=== PATIENT | female | born 1995 | race Caucasian/White ===

== ENCOUNTER 2017-03-24 23:00 | Outpatient (CLI) | END 2017-03-25 02:00 | disposition home or self-care (01) | DX: O24.410 Gestational diabetes mellitus in pregnancy, diet controlled (principal); Z3A.29 29 weeks gestation of pregnancy ==

== ENCOUNTER 2017-05-25 11:03 | Inpatient (IN) | payer OTHER ==
[~2017-05-25 11:03] MED LIST: CALC600T11 PO; PRENAT PO
[2017-05-25] MEDS ORDERED: LACTATED RINGER'S 1,000 ML IV SCH (11:52)
[2017-05-25] MEDS ORDERED: IBUPROFEN 600 MG TAB PO PRN (12:00)
[2017-05-25] MEDS ORDERED: CARBOPROST 250 MCG INJ IM PRN ×2 (12:00→18:00)
[2017-05-25] MEDS ORDERED: MISOPROSTOL 200 MCG TAB PR PRN ×2 (12:00→18:00)
[2017-05-25] MEDS ORDERED: LACTATED RINGER'S 1,000 ML IV PRN (12:00)
[2017-05-25] MEDS ORDERED: LIDOCAINE 1% (MPF) 30 ML INJ INJ PRN (12:00)
[2017-05-25] MEDS ORDERED: METHYLERGONOVINE 0.2 MG INJ IM PRN ×2 (12:00→18:00)
[2017-05-25] MEDS ORDERED: OXYTOCIN 30 UNITS/LR 500 ML IV PRN ×2 (12:00→18:00)
[2017-05-25] MEDS ORDERED: OXYTOCIN 30 UNITS/LR 500 ML IV SCH ×2 (12:00)
[2017-05-25] MEDS ORDERED: BUTORPHANOL 2 MG INJ IV PRN (12:00)
[2017-05-25] MEDS ORDERED: MINERAL OIL LIGHT 10 ML VIAL TOP PRN (12:00)
[2017-05-25] MEDS ORDERED: AMPICILLIN 2 GM/NS (PMX) 100 ML IVPB ONE (14:00)
[2017-05-25 14:30] LABS: BASOPHIL # 0.1 10^3/ul (0.0-0.1); BASOPHILS % 0.3 % (0.0-2.0); EOSINOPHILS % 0.1 % (0.0-7.0); HEMATOCRIT 43.3 % (37.0-47.0); HEMOGLOBIN 14.1 g/dl (12.0-16.0); LYMPHOCYTES # 1.8 10^3/ul (0.8-2.9); LYMPHOCYTES % 9.4 % (15.0-51.0); MEAN CORPUSCULAR HEMOGLOBIN 30.9 pg (29.0-33.0); MEAN CORPUSCULAR HGB CONC 32.6 g/dl (32.0-37.0); MEAN PLATELET VOLUME 11.7 fl (7.4-10.4); MONOCYTE # 1.3 10^3/ul (0.3-0.9); MONOCYTES % 6.6 % (0.0-11.0); NEUTROPHIL # 15.8 10^3/ul (1.6-7.5); NEUTROPHILS % 83.1 % (39.0-77.0); PLATELET COUNT 244 10^3/UL (140-415); RED BLOOD COUNT 4.56 10^6/ul (4.20-5.40)
--- NOTE | 2017-05-25 14:37 | TRIAGE ---
OB Triage Datetime Report Generated by CPN: 05/25/2017 14:37 Datetime: 05/25/2017 14:17 Vaginal Exam Dilatation (cms): 9.0 Effacement (%): 100 Exam By: DDUNN Membrane Status: Bulging Vaginal Bleeding: Normal Show Cervix, Consistency: Soft Cervix, Position: Anterior Datetime: 05/25/2017 13:44 Vaginal Exam Dilatation (cms): 6.0 Effacement (%): 90 Exam By: DDUNN Membrane Status: Bulging Vaginal Bleeding: Normal Show Cervix, Consistency: Soft Cervix, Position: Anterior Datetime: 05/25/2017 12:56 Time of Arrival: 05/25/2017 10:50 EGA: 38.4 Arrived By: Ambulatory Arrived From: Office Chief Complaint: UC Movement: Present Contractions: Irregular Rupture of Membranes: Denies Vaginal Bleeding: Normal Show Vaginal Discharge: Denies Recent Sexual Intercouse: Denies Abdominal Trauma: Not Applicable Patient Complaints: Contractions Time Provider Notified: 05/25/2017 11:21 Provider Notified: Tom Initial Plan: NST, VE Datetime: 05/25/2017 11:08 Stage of : OB Triage Datetime: 05/25/2017 11:00 Assessment Type: Triage Maternal Assessment Level of Consciousness: Fully Conscious DTR's/Clonus: DTRs 2+; No Clonus Headache: Denies Blurred Vision: No Respiratory Effort: Unlabored; Regular Rhythm; Equal Expansion Breath Sounds, Left: Clear and Equal Breath Sounds, Right: Clear and Equal Nausea/Vomiting: Denies RUQ Epigastric Pain: Denies Lower Extremities Edema: Bilateral Lower Extremities Degree: 1+ Upper Extremities Edema: Bilateral Upper Extremities Degree: 1+ Facial Edema: None Fall Risk Assessment History of Falling: (0) No Secondary Diagnosis: (0) No Ambulatory Aid: (0) Bedrest/Nurse Assist IV Therapy: (0) No Gait: (0) Normal/Bedrest/Immobile Mental Status: (0) Oriented to Own Ability Fall Score: 0 Fall Risk Score Definition: No Risk: No action required Datetime: 05/25/2017 09:27 Vaginal Exam Dilatation (cms): 4.0 Effacement (%): 50 Station: -1 Datetime: 03/25/2017 00:33 Monitor Mode: External Quality: Mild Datetime: 03/25/2017 00:30 Stage of : OB Triage Vaginal Exam Dilatation (cms): 0.0 Effacement (%): 0 Station: -4 Exam By: Lianne Robles Membrane Status: Intact Vaginal Bleeding: None Cervix, Consistency: Firm Cervix, Position: Posterior Datetime: 03/25/2017 00:25 Stage of : OB Triage Datetime: 03/25/2017 00:01 Stage of : OB Triage Datetime: 03/24/2017 23:44 Stage of : OB Triage Heart Rate FHR Baseline Rate: 130 Monitor Mode: External US FHR Baseline Changes: No Baseline Change Variability: Moderate 6-25 bpm Accelerations: 15X15 Decelerations: None Category: Category I Comments: FM removed Datetime: 03/24/2017 23:35 Stage of : OB Triage Monitor Mode: External Quality: Mild Pattern: Normal: <= 5 Contractions in 10 Minutes Resting Tone [place]: Relaxed Heart Rate FHR Baseline Rate: 130 Monitor Mode: External US FHR Baseline Changes: No Baseline Change Variability: Moderate 6-25 bpm Accelerations: 15X15 Decelerations: None Category: Category I Datetime: 03/24/2017 23:14 Bedside Blood Glucose: 90 Datetime: 03/24/2017 23:11 Stage of : OB Triage Maternal Assessment Level of Consciousness: Fully Conscious Headache: Denies Blurred Vision: Yes Respiratory Effort: Unlabored Nausea/Vomiting: Denies RUQ Epigastric Pain: Denies Facial Edema: None Labor Evaluation Frequency: plac ed Monitor Mode: External Resting Tone [place]: Relaxed Monitor Mode: External US Comments: FHT 140 Pain Assessment Pain Scale: 0 Pain Presence: None/Denies Pain Type: N/A Datetime: 03/24/2017 23:08 Time of Arrival: 03/24/2017 22:55 EGA: 29.5 Arrived By: Wheelchair Arrived From: Home Movement: Present Contractions: Denies/Absent Rupture of Membranes: Denies (Annotations: Data stored by CPN on behalf of user) Patient Complaints: Visual Disturbance; Dizziness
[2017-05-25 14:47] LABS: INR 0.91; PARTIAL THROMBOPLASTIN TIME 27.2 Sec (25.0-35.0); PROTIME 12.3 Sec (12.2-14.2)
[2017-05-25] MEDS ORDERED: OXYTOCIN 10 UNIT INJ ONE (15:13)
--- NOTE | 2017-05-25 16:59 | LDN ---
Date/Time of Note Date/Time of Note DATE: 05/25/17 TIME: 16:55 Delivery Summary Normal spontaneous vaginal delivery of a viable infant over intact perineum Weeks of Gestation 38+ Placenta Delivered: Spontaneously, Intact & Complete Meconium: none Episiotomy: No Perineal laceration: 0 Anesthesia type: None Estimated blood loss: 200 Sponge & Needle done & correct: Yes All needle counts correct: Yes Any foreign bodies felt in the: No Problems: Delivery Information Sex Sex: male Apgars 1 Minute: 9 5 Minute: 9 Suctioning Nose & mouth suctioned at finn: Yes Delee suction performed: No Umbilical Cord Umbilical cord with: 3 Vessels Cord presentations: no nuchal cord Cord Blood was obtained: Yes Mother & Baby Disposition Disposition Procedure done by Dr. Nascimento Mom & Baby to Maternity; Good: Yes (Mother and baby were recovered in good condition) Mom transferred to: Other (Maternity) Baby to NICU: No JENNIFER CARRANZA MD May 25, 2017 16:59
[2017-05-25] MEDS ORDERED: AMPICILLIN 1 GM/NS (PMX) 50 ML IVPB SCH (17:00)
--- NOTE | 2017-05-25 17:02 | HP ---
Date/Time of Note Date/Time of Note DATE: 05/25/17 TIME: 16:59 OB - History Hx of Present Free Text/Dictation Complaint of onset of labor pain started a few hours prior to admission denies rupture of membrane Last Menstrual Period: Aug 28, 2017 Estimated Due Date: Jun 04, 2017 : 2 Para: 1 Care: Good Care Ultrasounds: Normal mid trimester US Obstetrical Complications: Gestational Diabetes Medical Complications: None Past Family/Social History * Past Medical, Surgical, Family and Obstetric Histories reviewed from chart. Blood Type: O+ RPR/VDRL: Negative GBS Status: Positive HBsAG: Negative OB Admission Exam Physical Exam HEENT: WNL Heart: Rhythm Normal Lungs: Clear, Equal Abdomen: WNL Extremities: Normal Reflexes: Normal Cervical Dilatation: 4cm Effacement: 75% Station: -2 Membranes: Intact Heart Rate: 140's Accelerations: Accelerations Present Decelerations: No Decelerations Varibility: Marked Contractions on Admission: < 5 Minutes Apart Date/Time Contractions Began: May 25, 2017 Frequency of Contractions: Every 3 4 minutes Duration: Over 62nd Intensity: Moderate Last 72 hours Lab Results CBC & BMP 05/25/17 13:35 OB Assessment/Plan Reason for admission: active labor Other Assessment: Term gestation Class A1 diabetes Other plan: Continue to observe for leg JENNIFER CARRANZA MD May 25, 2017 17:02
[2017-05-25] MEDS ORDERED: LACTATED RINGER'S 1,000 ML IV* SCH (17:43)
[2017-05-25] MEDS: IBUPROFEN 600 MG TAB PO SCH (18:00)
[2017-05-25] MEDS ORDERED: WITCH HAZEL/GLYCERIN PAD PR PRN (18:00)
[2017-05-25] MEDS ORDERED: LANOLIN 7 GM TUBE TOP PRN (18:00)
[2017-05-25] MEDS ORDERED: BENZOCAINE 20% 56 ML SPRAY TOP PRN (18:00)
[2017-05-25] MEDS ORDERED: HYDROCODONE/APAP (5/325) TAB PO PRN ×2 (18:00)
[2017-05-25] MEDS ORDERED: ZOLPIDEM 5 MG TAB PO PRN (18:00)
[2017-05-25] MEDS ORDERED: DIBUCAINE 1% 30 GM OINT PR PRN (18:00)
[2017-05-25 18:55] VITALS: BP 113/85; PULSE 113; RESP 15
[2017-05-25] MEDS: ACCU-CHEK XX SCH (19:35)
[2017-05-25 19:50] VITALS: BP 124/69; PULSE 100; RESP 18
[2017-05-25] MEDS: metFORMIN (XR) 500 MG TAB PO SCH (20:55)
[2017-05-25] MEDS: MAGNESIUM HYDROXIDE 30ML CUP PO SCH (20:56)
[2017-05-25] MEDS: SENNA/DOCUSATE NA (8.6MG/50MG) TAB PO SCH (20:56)
[2017-05-26] MEDS: IBUPROFEN 600 MG TAB PO SCH ×5 (00:14→23:34)
[2017-05-26 04:00] VITALS: BP 100/74; PULSE 88; RESP 18
[2017-05-26 07:30] VITALS: BP 100/59; PULSE 89; RESP 20
[2017-05-26] MEDS: ACCU-CHEK XX SCH ×5 (07:30→21:00)
[2017-05-26] MEDS: metFORMIN (XR) 500 MG TAB PO SCH ×2 (08:56→21:17)
[2017-05-26] MEDS: MAGNESIUM HYDROXIDE 30ML CUP PO SCH ×2 (08:56→21:15)
[2017-05-26] MEDS: SENNA/DOCUSATE NA (8.6MG/50MG) TAB PO SCH ×2 (08:56→21:15)
[2017-05-26 09:26] LABS: ABNORMAL IP MESSAGE 1; BASOPHIL # 0.1 10^3/ul (0.0-0.1); BASOPHILS % 0.2 % (0.0-2.0); EOSINOPHILS # 0.2 10^3/ul (0.0-0.5); EOSINOPHILS % 0.8 % (0.0-7.0); HEMATOCRIT 34.5 % (37.0-47.0); HEMOGLOBIN 11.4 g/dl (12.0-16.0); LYMPHOCYTES # 3.8 10^3/ul (0.8-2.9); LYMPHOCYTES % 18.2 % (15.0-51.0); MEAN CORPUSCULAR HEMOGLOBIN 30.8 pg (29.0-33.0); MEAN CORPUSCULAR VOLUME 93.2 fl (82.0-101.0); MEAN PLATELET VOLUME 11.5 fl (7.4-10.4); MONOCYTE # 1.6 10^3/ul (0.3-0.9); MONOCYTES % 7.9 % (0.0-11.0); NEUTROPHIL # 14.9 10^3/ul (1.6-7.5); NEUTROPHILS % 71.9 % (39.0-77.0); PLATELET COUNT 229 10^3/UL (140-415); WHITE BLOOD COUNT 20.7 10^3/ul (4.8-10.8)
[2017-05-26 09:38] LABS: POSITIVE DIFF @See below
[2017-05-26 16:18] VITALS: BP 118/62; PULSE 98; RESP 19
--- NOTE | 2017-05-26 18:13 | DS ---
Date/Time of Note Date/Time of Note Home today or next day DATE: 05/26/17 TIME: 18:12 Obstetrical Discharge Record Final Diagnosis Final Diagnosis: Term delivered Other Final Diagnosis Status post vaginal delivery Vaginal Delivery Obstetrical Delivery: Spontaneous Condition on Discharge Physical Assessment Last Vitals: See nurse's notes Voiding: Yes Bowel Movement: Yes Breast: Soft, non-tender, Filling Fundus: Firm Abdomen and Incision: Soft bowel sounds present Episiotomy: Not applicable Perineum is clean Calf Tenderness: No Patient Condition: Good JENNIFER CARRANZA MD May 26, 2017 18:13
--- NOTE | 2017-05-26 18:14 | PD.PPDC ---
ASSOCIATE MEDIA DIRECTOR Discharge Instruction Provider Information Physician Information 21-year-old female had vaginal delivery Diagnosis Final Diagnosis: That is post vaginal delivery Condition Patient Condition: Good Diet Diet: Resume Regular Diet Activity/Restrictions Activity: Normal Activity May Shower Restrictions: Nothing in the Vagina Return to Work or School: Jul 09, 2017 Follow-up Follow-up with Physician: 4, Week/Weeks (In clinic for follow-up) Return to clinic for OB Instructions: Breast Tenderness Depression Comment: Cervix rest no heart activity for 6 weeks JENNIFER CARRANZA MD May 26, 2017 18:14
[2017-05-26] MEDS ORDERED: IBUP-1542 PO (18:15)
[2017-05-26] MEDS ORDERED: METF500T3 PO (18:22)
[2017-05-26 20:00] VITALS: BP 123/58; PULSE 81; RESP 19
[2017-05-27 04:45] VITALS: BP 105/58; PULSE 62; RESP 20
[2017-05-27] MEDS: IBUPROFEN 600 MG TAB PO SCH ×2 (06:00→11:47)
[2017-05-27] MEDS: ACCU-CHEK XX SCH ×2 (07:30→10:24)
[2017-05-27 08:00] VITALS: BP 116/60; PULSE 77; RESP 19
[2017-05-27] MEDS: MAGNESIUM HYDROXIDE 30ML CUP PO SCH (08:24)
[2017-05-27] MEDS: SENNA/DOCUSATE NA (8.6MG/50MG) TAB PO SCH (08:24)
[2017-05-27] MEDS: metFORMIN (XR) 500 MG TAB PO SCH (08:24)
[2017-05-27] MEDS ORDERED: DIPHTH/TET/ACEL PERTUSS (ADULT) 0.5 ML VIAL IM* ONE (09:00)
[2017-05-27] MEDS ORDERED: MEASLES,MUMPS,RUBELLA VACCINE INJ SC* ONE (09:00)
[2017-05-27] MEDS ORDERED: VARICELLA VACCINE LIVE/PF 1,350 UNIT/0.5 ML ML SC* ONE (09:00)
[2017-05-27 09:06] LABS: BASOPHIL # 0.1 10^3/ul (0.0-0.1); BASOPHILS % 0.4 % (0.0-2.0); EOSINOPHILS # 0.2 10^3/ul (0.0-0.5); EOSINOPHILS % 1.1 % (0.0-7.0); HEMATOCRIT 34.5 % (37.0-47.0); HEMOGLOBIN 11.3 g/dl (12.0-16.0); LYMPHOCYTES % 23.8 % (15.0-51.0); MEAN CORPUSCULAR HGB CONC 32.8 g/dl (32.0-37.0); MEAN CORPUSCULAR VOLUME 94.8 fl (82.0-101.0); MEAN PLATELET VOLUME 11.6 fl (7.4-10.4); NEUTROPHIL # 11.4 10^3/ul (1.6-7.5); NEUTROPHILS % 67.3 % (39.0-77.0); PLATELET COUNT 241 10^3/UL (140-415); RED BLOOD COUNT 3.64 10^6/ul (4.20-5.40); RED CELL DISTRIBUTION WIDTH 14.3 % (11.5-14.5); WHITE BLOOD COUNT 16.9 10^3/ul (4.8-10.8)
--- NOTE | 2017-05-29 10:56 | NSTRPT ---
NST Information Datetime Report Generated by CPN: 05/29/2017 10:56 Datetime: 05/25/2017 08:11 NST Information EGA: 38.4 Test Number: 12 Time on Monitor: 05/25/2017 08:20 Time off Monitor: 05/25/2017 08:56 NST Duration (Min): 36 Reason for NST: Diabetes Mellitus; Other Reason for NST Other: A1DM Test and Monitor Explained: Monitor Explained; Test Explained; Verbalized Understanding Pulse: 88 Resp: 18 SBP: 123 DBP: 74 Test Evaluation NST Interventions: PO Hydration; Reposition Patient; Acoustic Stimulation Patient States Movement: Present Contraction Frequency: Q3-4(mild) FHR Baseline : 140 Variability: Moderate 6-25bpm Accelerations: 15X15 Decelerations: Variable FHR Category: Category II NST Results: Questionable Comments: To u/s. NADEEM 17.3cm. CEPHALIC. FBS 98. VE: /-1. Report called to Scott Ghosh Unable to reach Dr Santos at this time, pt having u/c's, 4cm/50/-1 . will send pt to triage directly at this time. POC explained to pt, states understanding that needs to go to triage directly and not go home. [id number] to triage at this time. Electronically Signed By E-Signature: with User ID: [id number] Datetime: 05/22/2017 08:17 NST Information EGA: 38.1 NST Duration (Min): 27 Datetime: 05/16/2017 08:25 NST Information EGA: 37.2 NST Duration (Min): 20 Datetime: 05/11/2017 08:30 NST Information EGA: 36.4 NST Duration (Min): 23 Datetime: 05/08/2017 08:15 NST Information EGA: 36.1 NST Duration (Min): 29 Datetime: 05/04/2017 08:25 NST Information EGA: 35.4 NST Duration (Min): 30 Datetime: 04/27/2017 08:15 NST Information EGA: 34.4 NST Duration (Min): 27 Datetime: 04/24/2017 08:15 NST Information EGA: 34.1 NST Duration (Min): 24 Datetime: 04/20/2017 08:05 NST Information EGA: 33.4 NST Duration (Min): 21 Datetime: 04/17/2017 08:50 NST Information EGA: 33.1 NST Duration (Min): 20 Datetime: 04/13/2017 08:36 NST Information EGA: 32.4 NST Duration (Min): 26 Datetime: 04/10/2017 08:46 NST Information EGA: 32.1 NST Duration (Min): 27
== END 2017-05-27 13:55 | disposition home or self-care (01) | DRG 775 ==
LOC: L-D 11:03 → OBT 11:03 → L-D 11:21 → OBT 11:36 → L-D 12:44 → PP1 17:21
PROVIDERS: ADMIT Obstetrics & Gynecology; ATTEND Obstetrics & Gynecology
PROC: 10E0XZZ Delivery of Products of Conception, External Approach (ICD-10-PCS; principal; 2017-05-25)
DX: O24.419 Gestational diabetes mellitus in pregnancy, unspecified control (principal)
CPT/HCPCS: 82962; 85025; 85610; 85730; 86592; 86900; 86901; 87340; 90715; 90716; 99464; G0463; J0290; J2590; J7120